=== PATIENT | female | born 1965 | race Caucasian/White ===

== ENCOUNTER 2016-11-07 03:26 | Emergency (ER) | payer BC ==
[~2016-11-07] VITALS: Ht 162.6 cm; Wt 86.4 kg
[2016-11-07 04:05] LABS: HEMATOCRIT 41.7 % (36.0-46.0); MCH 32.5 PG (29.0-34.0); MCHC 35.3 G/DL (30.0-36.0); MCV 92.3 FL (83-99); MEAN PLAT.VOLUME 8.9 uM^3 (9.5-12.4); PLATELET COUNT 151 K/uL (156-360); RBC DIS.WIDTH-CV 12.1 % (11.8-14.6); RBC DIS.WIDTH-SD 41.3 % (39-53); RED BLOOD COUNT 4.52 M/uL (3.80-5.20); WHITE BLOOD COUNT 4.7 K/uL (4.1-10.2)
[2016-11-07 04:20] LABS: CHLORIDE 100 mEq/L (99-109); POTASSIUM 2.9 mEq/L (3.7-5.4); SODIUM 137 mEq/L (136-147)
[2016-11-07 04:22] LABS: GLUCOSE 120 mg/dL (70-99)
[2016-11-07 04:23] LABS: ANION GAP 12 MEQ/L (2-14)
[2016-11-07 04:24] LABS: TOTAL BILIRUBIN 0.9 mg/dL (0.0-1.0)
[2016-11-07 04:26] LABS: ALKALINE PHOSPHATASE 84 IU/L (3-129); GFR ESTIMATE (CALCULATED) > 59 mL/min/
[2016-11-07 04:27] LABS: UREA NITROGEN (BUN) 9 mg/dL (9-23)
[2016-11-07] MEDS ORDERED: NORCO 5/3251 TABLET PO (05:14)
[2016-11-07] MEDS ORDERED: CLEOCIN300 MG PO (05:14)
[2016-11-07 06:28] VITALS: BP 126/79
== END 2016-11-07 06:29 | disposition home or self-care (01) ==
LOC: EME 03:26
PROVIDERS: Physician Assistant
DX: L03.213 Periorbital cellulitis (principal); J32.0 Chronic maxillary sinusitis; E87.6 Hypokalemia; Z88.0 Allergy status to penicillin
CPT/HCPCS: 70450; 70481; 80053; 85027; 99281; 99285; J1885; J2270; J2405; J7030